=== PATIENT | female | born 1960 | race Caucasian/White ===

== ENCOUNTER → 2020-08-22 07:43 | Outpatient (CLI) | payer BC, SELFPAY ==
--- NOTE | ~2020-08-22 | US_ITS ---
EXAMINATION: US renal BI DATE: 08/22/2020 08:11 INDICATION: Proteinuria. TECHNIQUE: Multiple ultrasound grayscale images of the kidneys were obtained. COMPARISON: CT abdomen and pelvis 08/05/2012 FINDINGS: The right kidney measures 11.2 x 6.3 x 5.8 cm. The left kidney measures 11.3 x 6.3 x 5.8 cm. The kidn eys demonstrate normal parenchymal echogenicity. There is mild left hydronephrosis. The bladder is no rmal. IMPRESSION: 1. Mild left hydronephrosis. Reviewed, dictated and finalized at location A. [facility] [employer]
== END ==
PROVIDERS: PCP Physician Assistant; Visit Provider Internal Medicine Nephrology
DX: R80.1 Persistent proteinuria, unspecified (principal); N13.30 Unspecified hydronephrosis
CPT/HCPCS: 76775

== ENCOUNTER → 2020-10-08 07:43 | Outpatient (CLI) | payer BC, SELFPAY ==
--- NOTE | ~2020-10-08 | CT_ITS ---
EXAMINATION: CT abdomen pelvis wo/w con DATE: 10/08/2020 09:07 INDICATION: Left hydronephrosis TECHNIQUE: Computed tomography (CT) of the abdomen and pelvis was performed without and with 130 cc O mnipaque 350 intravenous contrast. The dose-length product was 2190.06 mGy-cm. Automated exposure con trol and iterative reconstruction technique were employed. COMPARISON: CT dated 08/09/2012 and ultrasound dated 08/22/2020. FINDINGS: No hydronephrosis. There are bilateral renal parapelvic cysts. Dependent atelectasis in the lung bases. Heart size normal. No significant pleural or pericardial effusion. No renal stones. Gall bladder is present. Nonobstructive bowel gas pattern. The liver, spleen, pancreas, adrenal glands are unremarkable. There are subcentimeter hypodensities o f the kidneys, most likely benign cysts. Bladder is unremarkable. Ureters are normal in course and ca liber. No free air or free fluid. Gallbladder is present. Tiny fat-containing umbilical hernia. No ac deon bone or joint abnormality. Small sclerotic lesion of the right pelvis, likely benign bone island. IMPRESSION: 1. No acute abdominal abnormality. No evidence for hydronephrosis. Bilateral parapelvic cysts likely account for appearance on prior ultrasound. Reviewed, dictated and finalized at location A. IMPRESSION: 1. No acute abdominal abnormality. No evidence for hydronephrosis. Bilateral pa rapelvic cysts likely account for appearance on prior ultrasound.
[2020-10-08 08:24] LABS: Estimated Glomerular Filt Rate > 60
== END ==
PROVIDERS: PCP Physician Assistant; Visit Provider Urology
DX: K42.9 Umbilical hernia without obstruction or gangrene (principal)
CPT/HCPCS: 74178; Q9967

== ENCOUNTER 2021-04-19 01:56 | Day surgery (SDC) | payer BC, SELFPAY ==
[2021-04-06 14:07] VITALS: BMI 35.5
[2021-04-19 06:21] VITALS: BP 150/72; PULSE 89; RESP 20; TEMP 36.2; O2SAT 96
[2021-04-19] MEDS: LACTATED RINGERS 1,000 ML 150 ML IV CONT (06:41)
--- NOTE | 2021-04-19 06:41 | WPDANESEPPF ---
Anes - Initial Pre Proc Eval Procedure: Operation Date: 04/19/21 07:30 Proposed Procedures p Screening Colonoscopy - Duane Mcfarlane MD Date/Time: 04/19/21 06:41 Surgeon: Duane Mcfarlane MD Pre Op Diagnosis: neoplasm screening Z12.11 Patient Data Age: 60 Gender: F Height: 1.6 m Weight: 93.4 kg Last Vital Signs Temp 36.2 C L 04/19/21 06:21 Pulse 89 04/19/21 06:21 Resp 20 04/19/21 06:21 BP 150/72 H 04/19/21 06:21 Pulse Ox 96 04/19/21 06:21 Allergies Allergy/AdvReac Type Severity Reaction Status Date / Time No Known Allergies Allergy Verified 04/19/21 06:18 Home Medications Medication Instructions Recorded Confirmed Type atorvastatin 20 mg tablet 20 mg PO DAILY #90 tablet 06/29/20 04/06/21 Rx pioglitazone 30 mg tablet 30 mg PO DAILY #90 tablet 09/07/20 04/06/21 Rx metformin 1,000 mg tablet 1,000 mg PO BID #180 tablet 10/12/20 04/06/21 Rx blood sugar diagnostic See Rx Instructions .ROUTE 10/19/20 01/29/21 Rx .COMPLEX #175 strip insulin glargine U-300 conc 300 26 unit SUB-Q DAILY #6 ml 11/12/20 04/06/21 Rx unit/mL (3 mL) subcutaneous pen pen needle, diabetic 31 gauge x #1200 ea 11/12/20 01/29/21 Rx 5/16 tamoxifen 20 mg tablet 20 mg PO DAILY 01/29/21 04/06/21 History losartan 100 mg tablet 100 mg PO DAILY #90 tablet 02/05/21 04/06/21 Rx Patient hx anesthesia problems: none Family hx anesthesia problems: none Results Review: All pre-operative results and documents have been reviewed as part of the pre-operative evaluation. [facility] Past Medical History Medical History Hyperlipidemia Hypertension Type 2 diabetes mellitus with hyperglycemia Surgical History Surgical History History of delivery History of left mastectomy [place] teeth removed Family History Family History Mother Family history of chronic obstructive pulmonary disease Grandparent Diabetes mellitus Father Acute myocardial infarction Social History Social History Smoking status: Never smoker Tobacco type: cigarettes Second hand tobacco smoke exposure: No Alcohol intake: never Alcohol use details: Rarely. Substance use: never Substance use type: does not use Living arrangements: with family Gender identity (if verbalized by the patient): Female Spiritual care concerns: No Agree to blood products: Yes Anes - Eval Final PreProcedure Day of Procedure 04/19/21 06:41 Patient weight: obese Heart: regular rate and rhythm Lungs: clear to auscultation Airway: Mallampati scale class II Neurological: alert and oriented Last oral intake: >/= 8 hours ASA classification: III Emergent: no Anesthetic plan: proceed Anesthesia type and monitoring: general Results Review: All pre-operative results and documents have been reviewed as part of the pre-operative evaluation. Informed Consent: The patient's anesthetic plan and its attendant risks and benefits were discussed with the patient/family/POA. Questions were solicited and answers provided to the satisfaction of the patient/family/POA.
[2021-04-19 06:49] LABS: Glucose Point of Care 131 mg/dl (65-105)
--- NOTE | 2021-04-19 07:25 | PM.HPGS ---
History of Present Illness History of Present Illness Consent: Risks, benefits, and alternatives have been discussed and questions answered. Patient agrees to proceed with procedure. Chief complaint: neoplasm screening Z12.11 Narrative: Mariana Webster is a 60 year old female with last colonoscopy 11 years ago. Review of Systems Constitutional: Constitutional: Denies headache(s) and Denies weakness Eyes: Eyes: Denies blurry vision ENT: Reports Normal hearing present, Denies headache(s) and Denies neck pain Cardiovascular: Cardiovascular: Denies chest pain and Denies dyspnea Respiratory: Respiratory: Denies dyspnea Gastrointestinal: Gastrointestinal: Reports no additional gastrointestinal complaints Genitourinary: Genitourinary: Denies dysuria Musculoskeletal: Musculoskeletal: Denies neck pain Integumentary/Breasts: Skin/Breast: Denies dry skin Neurologic: Reports Normal hearing present, Denies headache(s) and Denies weakness Psychiatric: Psychiatric: Denies anxiety Endocrine: Endocrine: Denies change in body appearance Hematologic/Lymphatic: Hematologic/Lymphatic: Denies easy bleeding Allergic/Immunologic: Allergic/Immunologic: Denies urticaria PMFSH Past Medical History Medical History Hyperlipidemia Hypertension Type 2 diabetes mellitus with hyperglycemia Surgical History Surgical History History of delivery History of left mastectomy [place] teeth removed Family History Family History Mother Family history of chronic obstructive pulmonary disease Grandparent Diabetes mellitus Father Acute myocardial infarction Social History Social History Smoking status: Never smoker Tobacco type: cigarettes Second hand tobacco smoke exposure: No Alcohol intake: never Alcohol use details: Rarely. Substance use: never Substance use type: does not use Living arrangements: with family Gender identity (if verbalized by the patient): Female Spiritual care concerns: No Agree to blood products: Yes Meds Home Medications and Allergies Home Medications Medication Instructions Recorded Confirmed Type atorvastatin 20 mg tablet 20 mg PO DAILY #90 tablet 06/29/20 04/06/21 Rx pioglitazone 30 mg tablet 30 mg PO DAILY #90 tablet 09/07/20 04/06/21 Rx metformin 1,000 mg tablet 1,000 mg PO BID #180 tablet 10/12/20 04/06/21 Rx blood sugar diagnostic See Rx Instructions .ROUTE 10/19/20 01/29/21 Rx .COMPLEX #175 strip insulin glargine U-300 conc 300 26 unit SUB-Q DAILY #6 ml 11/12/20 04/06/21 Rx unit/mL (3 mL) subcutaneous pen pen needle, diabetic 31 gauge x #1200 ea 11/12/20 01/29/21 Rx 11/29 tamoxifen 20 mg tablet 20 mg PO DAILY 01/29/21 04/06/21 History losartan 100 mg tablet 100 mg PO DAILY #90 tablet 02/05/21 04/06/21 Rx Allergies Allergy/AdvReac Type Severity Reaction Status Date / Time No Known Allergies Allergy Verified 04/19/21 06:18 Vital Signs Vital Signs - 24 hr 04/19/21 06:21 Temperature 97.1 F L Pulse Rate 89 Respiratory Rate 20 Blood Pressure 150/72 H Pulse Oximetry 96 Exam Const: General: comfortable and no acute distress HENMT: General nose exam: Normal nares present Eyes: General: appearance normal, both eyes and all related structures Neck: Neck: no JVD Resp: Auscultation: clear to auscultation bilaterally Cardio: Rate: regular rate Rhythm: regular rhythm GI: Inspection: non-distended GI Palp: Yes Soft to palpation Skin: General skin exam: normal color Neuro: General: gait normal Speech: normal speech Extrem: General: normal to inspection Psych: Mental Status: mental status grossly normal Assessment and Plan Assessment and plan (1) Colon cancer screening: Code(s): Z12.11 - [place]
[2021-04-19 07:44] VITALS: BP 85/48; PULSE 77; RESP 20; O2SAT 97
[2021-04-19 07:54] VITALS: BP 98/52; PULSE 82; RESP 18; O2SAT 96
[2021-04-19 07:58] LABS: Glucose Point of Care 112 mg/dl (65-105)
[2021-04-19 08:04] VITALS: BP 93/52; PULSE 74; RESP 18; O2SAT 97
== END 2021-04-19 08:20 | disposition home or self-care (01) ==
PROVIDERS: PCP Family Medicine; Visit Provider Internal Medicine Gastroenterology
PROC: 0DJD8ZZ Inspection of Lower Intestinal Tract, Via Natural or Artificial Opening Endoscopic (ICD-10-PCS; CPT 45378; principal; 2021-04-19 07:30)
DX: Z12.11 Encounter for screening for malignant neoplasm of colon (principal); D12.2 Benign neoplasm of ascending colon; K64.8 Other hemorrhoids; E11.9 Type 2 diabetes mellitus without complications; I10 Essential (primary) hypertension; E78.5 Hyperlipidemia, unspecified; Z79.84 Long term (current) use of oral hypoglycemic drugs; Z79.4 Long term (current) use of insulin; Z79.810 Long term (current) use of selective estrogen receptor modulators (SERMs); E66.9 Obesity, unspecified; Z68.36 Body mass index [BMI] 36.0-36.9, adult
CPT/HCPCS: 45380; 82948; 88305; J2704; J7120